=== PATIENT | female | born 1965 | race Caucasian/White ===

== ENCOUNTER 2018-10-24 08:27 | Emergency (ER) | payer MEDICARE ==
[2018-10-24 08:48] VITALS: BP 145/80
--- NOTE | 2018-10-24 09:06 | ED ---
Upper Extremity Pain - HPI Summary HPI Summary: 53 yr old with the complaint of right hand and wrist pain. The patient had onset of pain yesterday after falling when cleaning the floor and dog tripped her. She landed on her right hand and wrist. The pain is worse with movement of the right hand and wrist. Pain is moderate. - History of Current Complaint Chief Complaint: UCUpperExtremity Stated Complaint: SP FALL-RT ARM PAIN Time Seen by Provider: 10/24/18 08:50 - Allergies/Home Medications Allergies/Adverse Reactions: Allergies Allergy/AdvReac Type Severity Reaction Status Date / Time No Known Allergies Allergy Verified 10/24/18 08:41 Home Medications: Home Medications Atorvastatin* [Lipitor*] 20 mg PO DAILY 10/24/18 [History Confirmed 10/24/18] Cetirizine HCl [Allergy Relief] 10 mg PO DAILY 10/24/18 [History Confirmed 10/24] Levothyroxine TAB* [Synthroid TAB*] 75 mcg PO DAILY 10/24/18 [History Confirmed 10/24/18] Metoprolol Succinate XL TAB* [Toprol XL TAB*] 50 mg PO DAILY 10/24/18 [History Confirmed 10/24/18] Spironolactone TAB* [Aldactone TAB*] 50 mg PO BID 10/24/18 [History Confirmed ] Valsartan/Hydrochlorothiazide [Valsartan/Hydrochlorothia] 1 tab PO DAILY [History Confirmed 10/24/18] amLODIPine TAB* [Norvasc 5 mg TAB*] 10 mg PO DAILY 10/24/18 [History Confirmed 10/24/18] PMH/Surg Hx/FS Hx/Imm Hx - Surgical History Surgery Procedure, Year, and Place: hysterectomy Infectious Disease History: No Infectious Disease History: Denies: Traveled Outside the [place] in Last 30 Days - Family History Known Family History: Positive: None - Social History Alcohol Use: None Substance Use Type: Reports: None Smoking Status (MU): Never Smoked Tobacco Review of Systems Constitutional: Negative Musculoskeletal: Other - right wrist and hand pain All Other Systems Reviewed And Are Negative: Yes Physical Exam Triage Information Reviewed: Yes Vital Signs On Initial Exam: Initial Vitals Temp Pulse Resp BP Pulse Ox 99.6 F 77 17 145/80 97 10/24/18 08:42 10/24/18 08:42 10/24/18 08:42 10/24/18 08:42 10/24/18 08:42 Vital Signs Reviewed: Yes Appearance: Positive: Well-Appearing, No Pain Distress Skin: Positive: Warm, Skin Color Reflects Adequate Perfusion Head/Face: Positive: Normal Head/Face Inspection Eyes: Positive: EOMI ENT: Positive: Normal ENT inspection Neck: Positive: Nontender Respiratory/Lung Sounds: Positive: Clear to Auscultation Cardiovascular: Positive: RRR Abdomen Description: Negative: Distended Musculoskeletal: Positive: Strength/ROM Intact, Other - right hand and wrist without deformity. No STS. She has tenderness over the dorsum of the hand and over the distal ulna and radius. No tenderness over the snuff box area. Neurological: Positive: Sensory/Motor Intact, Alert, Oriented to Person Place, Time, CN Intact II-III Procedures - Splinting Right Upper Extremity Location: right arm, wrist, hand Hand-Made Type: orthoglass Splint: sugar-tong Pre-Proc Neuro Vasc Exam: normal Post-Proc Neuro Vasc Exam: normal Splint Applied by Provider: [facility] - Vital Signs Vital Signs Temp Pulse Resp BP Pulse Ox 10/24/18 08:42 99.6 F 77 17 145/80 97 - Laboratory Lab Statement: Any lab studies that have been ordered have been reviewed, and results considered in the medical decision making process. - Radiology right wrist Radiology Interpretation Completed By: Radiologist - distal radius fracutre Course/Dx - Course Course Of Treatment: 53 yr old with distal radius fracture - Diagnoses Provider Diagnoses: Fracture of right distal radius, Nondisplaced fracture Discharge ED - Sign-Out/Discharge Documenting (check all that apply): Patient Departure All imaging exams completed and their final reports reviewed: Yes - Discharge Plan Condition: Good Disposition: HOME Patient Education Materials: Wrist Fracture in Adults (ED), Hypertension (ED) Referrals: Marvin Monsivais MD [Primary Care Provider] - 2 Days Carlton Martínez MD [Medical Doctor] - 1 Day - Billing Disposition and Condition Condition: GOOD Disposition: Home
== END 2018-10-24 10:10 | disposition home or self-care (01) ==
LOC: UCCORT 08:27
DX: S52.571A Other intraarticular fracture of lower end of right radius, initial encounter for closed fracture (principal); W01.0XXA Fall on same level from slipping, tripping and stumbling without subsequent striking against object, initial encounter; Y93.E5 Activity, floor mopping and cleaning; Y92.009 Unspecified place in unspecified non-institutional (private) residence as the place of occurrence of the external cause
CPT/HCPCS: 99202; G0463